=== PATIENT | male | born 1965 | race African-American/Black ===

== ENCOUNTER 2018-09-30 19:22 | Emergency (ER) | payer BC ==
[~2018-09-30] VITALS: Ht 185.4 cm; Wt 91.0 kg
[2018-10-01] MEDS ORDERED: KETOROLAC 60MG/2ML VIAL IM ONE (01:15)
[2018-10-01 02:51] VITALS: BP 128/78
== END 2018-10-01 02:52 | disposition home or self-care (01) ==
LOC: ER 19:22
DX: S30.860A Insect bite (nonvenomous) of lower back and pelvis, initial encounter (principal); L03.317 Cellulitis of buttock; W57.XXXA Bitten or stung by nonvenomous insect and other nonvenomous arthropods, initial encounter; Y93.89 Activity, other specified; Y92.89 Other specified places as the place of occurrence of the external cause; R03.0 Elevated blood-pressure reading, without diagnosis of hypertension
CPT/HCPCS: 96372; 99283; J1885